=== PATIENT | male | born 1975 | race Caucasian/White ===

== ENCOUNTER 2017-02-14 21:03 | Inpatient (IN) | payer OTHER ==
[~2017-02-14] VITALS: Ht 170.2 cm; Wt 65.3 kg
[2017-02-14] MEDS ORDERED: HALOPERIDOL 5 MG INJ ONE (21:07)
[2017-02-14] MEDS ORDERED: DIPHENHYDRAMINE 50 MG INJ ONE (21:07)
[2017-02-14] MEDS ORDERED: LORAZEPAM 2 MG INJ ONE (21:08)
[2017-02-14] MEDS ORDERED: HALOPERIDOL 5 MG INJ IM ONE (21:30)
[2017-02-14] MEDS ORDERED: DIPHENHYDRAMINE 50 MG INJ IM ONE (21:30)
[2017-02-14] MEDS ORDERED: LORAZEPAM 2 MG INJ IM ONE (21:30)
[2017-02-14 22:09] LABS: URINE BLOOD (Dip) POC 2+ (NEGATIVE)
--- NOTE | 2017-02-14 22:19 | ERA ---
ER Documentation Chief Complaint Date/Time DATE: 02/14/17 TIME: 22:19 Chief Complaint BIB [employer] in custody for drug use/running in street with pic ax HPI . The patient is a 41-year-old male, presenting to the ER because he was very agitated, running on the street with an ax. He was restrained by [employer] office and brought to the ER for medical clearance.. He was very agitated, not responsive to counseling. He was therefore treated with Benadryl 50 mg IM, Ativan 2 mg IM, Haldol 5 mg IM and restraint with good response. He was unable to provide any history, the history is mainly obtained from the [employer] officer. He admitted using amphetamine to the officer Past medical/surgical history/review of system/social history: Unable to obtain due to his condition ROS All systems reviewed and are negative except as per history of present illness. Allergies Allergies: Coded Allergies: Unknown: Unable to obtain (Unverified , 02/15/17) PMhx/Soc History of Surgery: Yes (hernia) Hx Alcohol Use: Yes Hx Substance Use: Yes (admits to meth) Hx Tobacco Use: Yes Smoking Status: Current every day smoker Physical Exam Vitals Vital Signs Date Time Temp Pulse Resp B/P Pulse Ox O2 Delivery O2 Flow Rate FiO2 02/15/17 00:45 82 10 136/84 100 Nasal Cannula 2.0 02/15/17 00:30 83 11 134/85 100 Nasal Cannula 2.0 02/15/17 00:15 85 12 131/92 100 Nasal Cannula 2.0 02/15/17 00:00 87 17 137/81 100 Nasal Cannula 2.0 02/14/17 23:45 84 13 133/84 100 Nasal Cannula 2.0 02/14/17 23:30 97.9 82 10 151/89 100 Nasal Cannula 2.0 02/14/17 23:15 85 12 117/82 100 Nasal Cannula 2.0 02/14/17 23:00 90 21 128/79 100 Nasal Cannula 2.0 02/14/17 22:30 91 18 107/76 99 Nasal Cannula 2.0 02/14/17 22:00 104 21 107/70 100 Nasal Cannula 2.0 02/14/17 22:00 104 02/14/17 22:00 98 2.0 28 02/14/17 21:30 Nasal Cannula 2 02/14/17 21:30 120 9 107/77 100 Nasal Cannula 2.0 02/14/17 21:14 100.9 131 28 117/75 99 Physical Exam Const: No acute distress.Resting comfortably, restraint Head: Atraumatic. Eyes: Normal Conjunctiva. ENT: Normal External Ears, Nose and Mouth. Neck: Full range of motion. No meningismus. Resp: Clear to auscultation bilaterally. Cardio: Regular Tachycardic Abd: Soft, non distended, normal bowel sounds, non tender. Skin: No petechiae or rashes. Back: No midline or flank tenderness. Ext: No cyanosis, or edema. Neur: Unable to perform due to his condition Psych: Unable to perform due to his condition Result Diagram: 02/14/17230902/14/172309 Results 24 hrs Laboratory Tests Test 02/14/17 22:15 02/14/17 23:10 02/15/17 00:17 02/15/17 01:00 Bedside Urine pH (LAB) 6.0 Bedside Urine Protein (LAB) 3+ Bedside Urine Glucose (UA) Negative Bedside Urine Ketones (LAB) Negative Bedside Urine Blood 2+ Bedside Urine Nitrite (LAB) Negative Bedside Urine Leukocyte Esterase (L Negative Urine Opiates Screen Negative Urine Barbiturates Negative Urine Amphetamines Screen POSITIVE Urine Benzodiazepines Screen Negative Urine Cocaine Screen Negative Urine Cannabinoids Negative White Blood Count 14.910^3/ul Red Blood Count 4.9610^6/ul Hemoglobin 14.6g/dl Hematocrit 43.2% Mean Corpuscular Volume 87.1fl Mean Corpuscular Hemoglobin 29.4pg Mean Corpuscular Hemoglobin Concent 33.8g/dl Red Cell Distribution Width 13.3% Platelet Count 11327^3/UL Mean Platelet Volume 9.6fl Neutrophils % 86.9% Lymphocytes % 6.5% Monocytes % 5.3% Eosinophils % 0.2% Basophils % 0.5% Nucleated Red Blood Cells % 0.0/100WBC Neutrophils # (Manual) 12.910^3/ul Lymphocytes # 1.010^3/ul Monocytes # 0.810^3/ul Eosinophils # 0.010^3/ul Basophils # 0.110^3/ul Nucleated Red Blood Cells # 0.010^3/ul Prothrombin Time 12.1Sec Prothrombin Time Ratio 0.9 INR International Normalized Ratio 0.90 Activated Partial Thromboplast Time 24.0Sec Sodium Level 146mmol/L Potassium Level 3.1mmol/L Chloride Level 107mmol/L Carbon Dioxide Level 27mmol/L Anion Gap 15 Blood Urea Nitrogen 20mg/dl Creatinine 1.09mg/dl Glucose Level 95mg/dl Lactic Acid Level 2.8mmol/L Calcium Level 9.7mg/dl Total Bilirubin 0.5mg/dl Direct Bilirubin 0.00mg/dl Indirect Bilirubin 0.5mg/dl Aspartate Amino Transf (AST/SGOT) 90IU/L Alanine Aminotransferase (ALT/SGPT) 54IU/L Alkaline Phosphatase 64IU/L Creatine Kinase 1430IU/L 2217IU/L Troponin I < 0.012ng/ml Total Protein 7.6g/dl Albumin 4.5g/dl Globulin 3.10g/dl Albumin/Globulin Ratio 1.45 Ethyl Alcohol Level < 10.0mg/dl Bedside Glucose 99mg/dL Test 02/15/17 01:40 Lactic Acid Level 1.9mmol/L Current Medications Medications (Trade) Dose Ordered Sig/Carolyn Route PRN Reason Start Time Stop Time Status Last Admin Dose Admin Diphenhydramine HCl (Benadryl) 50 mg ONCE ONCE IM 02/14/17 21:30 02/14/17 21:31 DC 02/14/17 21:28 Lorazepam (Ativan) 2 mg ONCE ONCE IM 02/14/17 21:30 02/14/17 21:31 DC 02/14/17 21:28 Haloperidol (Haldol) 5 mg ONCE ONCE IM 02/14/17 21:30 02/14/17 21:31 DC 02/14/17 21:29 Sodium Chloride (NS) 1,860 ml BOLUS OVER 2 HOURS STAT IV* 02/14/17 22:46 02/14/17 22:49 DC 02/14/17 23:32 Acetaminophen 650 mg 650 mg ONCE ONCE SD 02/14/17 23:00 02/14/17 23:01 DC Vancomycin HCl 250 ml @ 125 mls/hr ONCE IVPB 02/15/17 02:30 02/15/17 04:29 Piperacillin Sod/ Tazobactam Sod 100 ml @ 200 mls/hr ONCE ONCE IVPB 02/15/17 02:30 02/15/17 02:59 DC Potassium Chloride (KCl 40 MEQ/250 ML NS) 250 ml @ 62.5 mls/hr ONCE ONCE IVPB 02/15/17 02:30 02/15/17 06:29 Procedures/MDM [place] [address] Radiology Main Line: [phone] DIAGNOSTIC IMAGING REPORT Patient: KENZIE PEÑALOZA : 1975 Age: 41 Sex: M MR #: [id number] DOS: 02/14/172245 Ordering MD: POLI CARDONA MD Location: E/R Room/Bed: PROCEDURE: XR Chest. CLINICAL INDICATION: Possible sepsis TECHNIQUE: Single AP portable chest. COMPARISON: No prior Chest x-ray FINDINGS: The cardiomediastinal silhouette is within normal limits of size. The lungs are clear without pleural effusion or focal consolidation. No pneumothorax. The osseous structures and soft tissues are unremarkable. IMPRESSION: 1. No evidence for active cardiopulmonary disease. RPTAT:AAJJ Physician Paulie Date Time Electronically viewed and signed by Physician Paulie on 02/14/2017 23:27 REBECA/ CC: POLI CARDONA MD [place] [id number] Radiology Main Line: [phone] DIAGNOSTIC IMAGING REPORT Patient: KENZIE PEÑALOZA : 1975 Age: 41 Sex: M MR #: [id number] DOS: 02/14/172245 Ordering MD: POLI CARDONA MD Location: E/R Room/Bed: PROCEDURE: CT Brain without contrast. CLINICAL INDICATION: Headache possible sepsis TECHNIQUE: A CT of the brain was performed on a [employer] 64-slice CT scanner utilizing axial imaging from the skull base through the vertex without IV contrast. Multiplanar reformatted images were made. Images were reviewed on a PACS workstation. The CTDIvol is 43.92 mGy and the DLP is 793.06 mGycm. One of the following 3 dose reduction techniques were used: Automated exposure control; adjustment of the mA and/or kV according to patient size; or use of iterative reconstruction technique. COMPARISON: None FINDINGS: There is no intracranial hemorrhage, mass effect, or midline shift. No extra- axial fluid collection is seen. The ventricles and sulci are normal in size and configuration. The density of the brain is normal, and the viveros white matter differentiation appears well-preserved. The visualized scalp and calvarium are remarkable for chronic bilateral nasal bone and left lamina papyracea fractures. No evidence for acute fractures are present. The bilateral orbits are normal. The bilateral paranasal sinuses, mastoid air cells and middle ear cavities are clear. IMPRESSION: 1. No evidence of acute intracranial hemorrhage, infarcts, or acute intracranial pathology. 2. Normal noncontrast head CT. 3. 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 RPTAT: HDC .Jeanette Castellanos MD, MD Date Time Electronically viewed and signed by .Jeanette Castellanos MD, MD on 02/14/2017 23: 25 .C/ CC: POLI CARDONA MD EKG: Read by emergency physician Rate/Rhythm: Normal Sinus Rhythm 81 beats/min QRS, ST, T-waves: No ST elevation, no T inversion, Nonspecific intra- ventricular conduction delay, prolonged QT Impression: Abnormal EKG MEDICAL MAKING DECISION: The patient is a 41-year-old male, presenting with acute severe sepsis, acute rhabdomyolysis, acute psychosis most likely due to drug-induced psychosis, acute amphetamine abuse, acute hypokalemia. He was treated with normal saline 30 mL/kg IV, vancomycin IV, Zosyn IV for acute severe sepsis, Tylenol suppository for fever with good response, Potassium chloride 40 mEq IV for acute hypokalemia X The differential diagnoses considered include but are not limited to medication non-compliance, alcohol intoxication or withdrawal, drug intoxication or withdrawal, endocrine disorder, trauma, CVA, tumor, metabolic encephalopathy, septic encephalopathy. Admit MDM: Patient's infectious symptoms have not stabilized and the patient is at risk of rapid decompensation. The patient will be admitted for careful hydration, antibiotic therapy, and infectious source control. Severe Sepsis criteria: Infectious source: Unknown End organ damage indicated by: Lactate > 2.0 mmol/L Sepsis Management: Time of recognition of severe sepsis/septic shock:1:45 am Within 3 hours of recognition: Blood cultures x 2 before broad-spectrum antibiotics: Yes 30 ml/kg NS bolus completed Initial lactate 2.8 Repeat lactate pending Critical Care: Critical care time 35 minutes excluding billable procedure Emergent fluid management while maintaining close respiratory support. Provision of immediate and broad-spectrum antibiotic therapy. Simultaneous assessment for possible sources in order to direct targeted therapy. Consideration for invasive and chemical support to prevent cardiopulmonary collapse. Septic Shock Assessment: Any lactic acid > 4.0 no Persistent hypotension (SBP < 90 or 40 mmHg drop, MAP < 65) despite 30 mL/kg IV fluid bolusno Departure Diagnosis: Primary Impression: Severe sepsis Additional Impressions: Rhabdomyolysis Psychosis Amphetamine abuse Hypokalemia Condition: Stable Comments I discussed the findings with the patient. I discussed the patient with the on- call hospitalist Dr. Angela at 2:15 AM. who was made aware of the lab, the treatment, the patient condition. The patient is admitted to telemetry POLI CARDONA MD Feb 14, 2017 22:19
[2017-02-14 22:46] LABS: CANNABINOIDS Negative (NEGATIVE)
[2017-02-14] MEDS ORDERED: SODIUM CHLORIDE 0.9% 1L BAG IV* STA (22:46)
[2017-02-14 22:47] LABS: BARBITURATES Negative (NEGATIVE); BENZODIAZEPINES Negative (NEGATIVE); COCAINE Negative (NEGATIVE); OPIATES Negative (NEGATIVE)
[2017-02-14] MEDS ORDERED: ACETAMINOPHEN 650 MG SUPP PR ONE (23:00)
--- NOTE | 2017-02-14 23:26 | RADRPT ---
PROCEDURE: CT Brain without contrast. CLINICAL INDICATION: Headache possible sepsis TECHNIQUE: A CT of the brain was performed on a [employer] 64-slice CT scanner utilizing axial imaging from the skull base through the vertex without IV contrast. Multiplanar reformatted images were made. Images were reviewed on a PACS workstation. The CTDIvol is 43.92 mGy and the DLP is 793 .06 mGycm. One of the following 3 dose reduction techniques were used: Automated exposure control; adjustment of the mA and/or kV according to patient size; or use of iterative reconstruction technique. COMPARISON: None FINDINGS: There is no intracranial hemorrhage, mass effect, or midline shift. No extra-axial fluid collection is seen. The ventricles and sulci are normal in size and configuration. The density of the brain is normal, and the viveros white matter differentiation appears well-preserved. The visualized scalp and calvarium are remarkable for chronic bilateral nasal bone and left lamina p apyracea fractures. No evidence for acute fractures are present. The bilateral orbits are normal. The bilateral paranasal sinuses, mastoid air cells and middle ear cavities are clear. IMPRESSION: 1. No evidence of acute intracranial hemorrhage, infarcts, or acute intracranial pathology. 2. Normal noncontrast head CT. 3. 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 RPTAT: HDC .Jeanette Castellanos MD, MD Date Time Electronically viewed and signed by .Jeanette Castellanos MD, MD on 02/14/2017 23:25 .C/
--- NOTE | 2017-02-14 23:28 | RADRPT ---
PROCEDURE: XR Chest. CLINICAL INDICATION: Possible sepsis TECHNIQUE: Single AP portable chest. COMPARISON: No prior Chest x-ray FINDINGS: The cardiomediastinal silhouette is within normal limits of size. The lungs are clear without pleur al effusion or focal consolidation. No pneumothorax. The osseous structures and soft tissues are unr emarkable. IMPRESSION: 1. No evidence for active cardiopulmonary disease. RPTAT:AAJJ Lindsay Chua Physician Date Time Electronically viewed and signed by Lindsay Chua Physician on 02/14/2017 23:27 REBECA/
[2017-02-14 23:30] VITALS: TEMP 97.9
[2017-02-14 23:45] LABS: BASOPHIL # 0.1 10^3/ul (0.0-0.1); BASOPHILS % 0.5 % (0.0-2.0); EOSINOPHILS % 0.2 % (0.0-7.0); HEMATOCRIT 43.2 % (42.0-52.0); HEMOGLOBIN 14.6 g/dl (14.0-18.0); LYMPHOCYTES % 6.5 % (15.0-51.0); MEAN CORPUSCULAR HEMOGLOBIN 29.4 pg (29.0-33.0); MEAN CORPUSCULAR HGB CONC 33.8 g/dl (32.0-37.0); MEAN CORPUSCULAR VOLUME 87.1 fl (82.0-101.0); MEAN PLATELET VOLUME 9.6 fl (7.4-10.4); MONOCYTE # 0.8 10^3/ul (0.3-0.9); MONOCYTES % 5.3 % (0.0-11.0); NEUTROPHILS % 86.9 % (39.0-77.0); PLATELET COUNT 329 10^3/UL (140-415); RED BLOOD COUNT 4.96 10^6/ul (4.70-6.10); RED CELL DISTRIBUTION WIDTH 13.3 % (11.5-14.5); WHITE BLOOD COUNT 14.9 10^3/ul (4.8-10.8)
[2017-02-14 23:55] LABS: INR 0.9; PROTIME 12.1 Sec (12.2-14.2); PT RATIO 0.9
[2017-02-15] VITALS (11 sets, daily range): BP systolic 103–132; BP diastolic 67–73; PULSE 57–70; RESP 16–18; Ht 170.2 cm; Wt 65.3 kg
[2017-02-15] LABS: ALANINE AMINOTRANSFERASE 54 IU/L (13-69); ALBUMIN 4.5 g/dl (3.3-4.9); ALBUMIN/GLOBULIN RATIO 1.45; ALKALINE PHOSPHATASE 64 IU/L (42-121); ANION GAP 15 (8-16); ASPARTATE AMINO TRANSFERASE 90 IU/L (15-46); BILIRUBIN,INDIRECT 0.5 mg/dl (0-1.1); BILIRUBIN,TOTAL 0.5 mg/dl (0.2-1.3); BLOOD UREA NITROGEN 20 mg/dl (7-20); CALCIUM 9.7 mg/dl (8.4-10.2); CARBON DIOXIDE 27 mmol/L (21-31); CHLORIDE 107 mmol/L (97-110); CREATININE 1.09 mg/dl (0.61-1.24); GLUCOSE 95 mg/dl (70-220); POTASSIUM 3.1 mmol/L (3.5-5.1); SODIUM 146 mmol/L (135-144); TOTAL PROTEIN 7.6 g/dl (6.1-8.1)
[2017-02-15 00:22] LABS: ETHANOL < 10.0 mg/dl; TROPONIN-I < 0.012 ng/ml (0.00-0.12)
[2017-02-15] MEDS ORDERED: PIPER-TAZO 3.375 GM IV (PMX) 100 ML IVPB ONE (02:30)
[2017-02-15] MEDS ORDERED: POTASSIUM CHLORIDE 250 ML IVPB ONE (02:30)
[2017-02-15] MEDS ORDERED: VANCOMYCIN 1 GM (PMX) 250 ML IVPB SCH (02:30)
--- NOTE | 2017-02-15 06:54 | HP ---
Date/Time of Note Date/Time of Note DATE: 02/15/17 TIME: 06:47 Assessment/Plan VTE Prophylaxis VTE Prophylaxis Intervention: SCD's Lines/Catheters Urinary Cath still in place: No Assessment/Plan Assessment/Plan 1. Methamphetamine overdose - will give Haldol and Benadryl as needed agitation 2. Rhabdomyolysis -IV fluid -Follow-up CK 3. SIRS, as evidenced by fever, leukocytosis and tachycardia -No clear source of infection, UA negative and chest x-ray without consolidation or infiltrate. This is possibly secondary to stress reaction -will empirically start him on IV antibiotic -Follow-up culture results HPI/ROS Admit Date/Time Admit Date/Time Feb 15, 2017 at 02:28 Hx of Present Illness Patient is a 41-year-old male who was picked up by [employer] from the street after he was found agitated and combative. Patient has been using methamphetamine. When he presented to the ER he was extremely agitated requiring people to restrain him. He was given Ativan, Haldol and Benadryl and after that the patient started coming down. He presented with a temperature of 100.9 and was tachycardic with a heart rate of 131. Labs shows elevated CK as high as 2200, WBC 15,000, potassium 3.1 and lactic acid 2.8 . PMH/Family/Social Social History Smoking Status: Current every day smoker Exam/Review of Systems Vital Signs Vitals Vital Signs Date Time Temp Pulse Resp B/P Pulse Ox O2 Delivery O2 Flow Rate FiO2 02/15/17 05:05 57 02/15/17 04:15 10 118/81 100 Nasal Cannula 2.0 02/14/17 23:30 97.9 02/14/17 22:00 28 Exam Constitutional: other (No acute distress) Head: atraumatic, normocephalic Eyes: PERRL Respiratory: clear to auscultation, normal air movement Cardiovascular: other (Tachycardic with regular rhythm) Gastrointestinal: non-tender, soft Extremities: normal pulses Labs Result Diagram: 02/14/17 2310 02/14/17 2310 Medications Medications Current Medications Sodium Chloride 1,000 ml @ 125 mls/hr Q8H IV ; Start 02/15/17 at 09:00 Levofloxacin/ Dextrose (Levaquin 500mg/ D5W 100 ml (Pmx)) 100 ml @ 100 mls/hr Q24H IVPB ; Start 02/15/17 at 09:00 Morphine Sulfate (morphine) 2 mg Q4H PRN IV PAIN; Start 02/15/17 at 07:00 Ondansetron HCl (Zofran Inj) 4 mg Q6H PRN IV NAUSEA AND/OR VOMITING; Start 02/15 at 07:00 Haloperidol (Haldol) 5 mg Q6H PRN IM anxiety; Start 02/15/17 at 07:00 ESPINOZA BARNEY MD Feb 15, 2017 06:54
[2017-02-15] MEDS ORDERED: ONDANSETRON 4 MG INJ IV PRN ×2 (07:00→14:00)
[2017-02-15] MEDS ORDERED: DIPHENHYDRAMINE 50 MG INJ IV PRN (07:00)
[2017-02-15] MEDS ORDERED: HALOPERIDOL 5 MG INJ IM PRN (07:00)
[2017-02-15] MEDS ORDERED: SOD CHLORIDE 0.9% 1,000 ML IV SCH (09:00)
[2017-02-15] MEDS ORDERED: LEVOFLOXACIN 500MG/D5W (PMX) 100 ML IVPB SCH (09:00)
[2017-02-15 14:05] LABS: ADD UMIC YES; UR AMORPHOUS CRYSTAL MODERATE /HPF (NONE SEEN); UR ASCORBIC ACID NEGATIVE (NEGATIVE); UR BILIRUBIN (Dip) NEGATIVE (NEGATIVE); UR BLOOD (Dip) 1+ mg/dL (NEGATIVE); UR CLARITY TURBID (CLEAR); UR COLOR YELLOW (YELLOW); UR GLUCOSE (Dip) NEGATIVE (NEGATIVE); UR KETONES (Dip) TRACE mg/dL (NEGATIVE); UR LEUKOCYTE ESTERASE (Dip) NEGATIVE Leu/ul (NEGATIVE); UR MUCUS MODERATE /HPF (NONE SEEN); UR NITRITE (Dip) NEGATIVE (NEGATIVE); UR RBC 75 /HPF (0-5); UR SPECIFIC GRAVITY (Dip) 1.032 (1.003-1.030); UR TOTAL PROTEIN (Dip) 2+ mg/dl (NEGATIVE); UR UROBILINOGEN (Dip) 1+ mg/dL (NEGATIVE)
--- NOTE | 2017-02-15 15:37 | PN ---
Date/Time of Note Date/Time of Note DATE: 02/15/17 TIME: 15:33 Assessment/Plan VTE Prophylaxis VTE Prophylaxis Intervention: LMWH Lines/Catheters IV [facility] [place] [facility] Urinary Cath still in place: No Assessment/Plan Chief Complaint/Hosp Course S: No distress. No fever dyspnea. [employer] at bedside. O: Vital signs stable PE No pallor/ droop Reg Clear Benign Min edema if any. Mild warmth? A/P 1. Acute rhabdomyolysis. Stable hydrate 2. Substance abuse- methamphetamines 3. Depression? 4. Possible history of nasal fracture Problems: Exam/Review of Systems Vital Signs Vitals Vital Signs Date Time Temp Pulse Resp B/P Pulse Ox O2 Delivery O2 Flow Rate FiO2 02/15/17 15:25 97.9 59 16 116/67 100 02/15/17 06:00 Nasal Cannula 2.0 02/14/17 22:00 28 Results Result Diagram: 02/14/17 2310 02/14/17 2310 Results 24 hrs Laboratory Tests Test 02/14/17 22:15 02/14/17 23:10 02/15/17 00:17 02/15/17 01:00 Urine Color YELLOW Urine Clarity TURBID A Urine pH 5.0 Bedside Urine pH (LAB) 6.0 Urine Specific [place] 1.032 H Bedside Urine Protein (LAB) 3+ H Bedside Urine Glucose (UA) Negative Urine Ketones TRACE A Bedside Urine Ketones (LAB) Negative Bedside Urine Blood 2+ H Urine Nitrite NEGATIVE Bedside Urine Nitrite (LAB) Negative Urine Bilirubin NEGATIVE Urine Urobilinogen 1+ H Urine Leukocyte Esterase NEGATIVE Bedside Urine Leukocyte Esterase (L Negative Urine Microscopic RBC 75 H Urine Microscopic WBC 0 Urine Calcium Oxalate Crystals MODERATE Urine Amorphous Crystals MODERATE Urine Mucus MODERATE Urine Hemoglobin 1+ H Urine Glucose NEGATIVE Urine Total Protein 2+ H Urine Opiates Screen Negative Urine Barbiturates Negative Urine Amphetamines Screen POSITIVE Urine Benzodiazepines Screen Negative Urine Cocaine Screen Negative Urine Cannabinoids Negative White Blood Count 14.9 H Red Blood Count 4.96 Hemoglobin 14.6 Hematocrit 43.2 Mean Corpuscular Volume 87.1 Mean Corpuscular Hemoglobin 29.4 Mean Corpuscular Hemoglobin Concent 33.8 Red Cell Distribution Width 13.3 Platelet Count 329 Mean Platelet Volume 9.6 Neutrophils % 86.9 H Lymphocytes % 6.5 L Monocytes % 5.3 Eosinophils % 0.2 Basophils % 0.5 Nucleated Red Blood Cells % 0.0 Neutrophils # (Manual) 12.9 H Lymphocytes # 1.0 Monocytes # 0.8 Eosinophils # 0.0 Basophils # 0.1 Nucleated Red Blood Cells # 0.0 Prothrombin Time 12.1 L Prothrombin Time Ratio 0.9 INR International Normalized Ratio 0.90 Activated Partial Thromboplast Time 24.0 L Sodium Level 146 H Potassium Level 3.1 L Chloride Level 107 Carbon Dioxide Level 27 Anion Gap 15 Blood Urea Nitrogen 20 Creatinine 1.09 Glucose Level 95 Lactic Acid Level 2.8 *H Calcium Level 9.7 Total Bilirubin 0.5 Direct Bilirubin 0.00 Indirect Bilirubin 0.5 Aspartate Amino Transf (AST/SGOT) 90 H Alanine Aminotransferase (ALT/SGPT) 54 Alkaline Phosphatase 64 Creatine Kinase 1430 H 2217 #H Troponin I < 0.012 Total Protein 7.6 Albumin 4.5 Globulin 3.10 Albumin/Globulin Ratio 1.45 Ethyl Alcohol Level < 10.0 Bedside Glucose 99 Test 02/15/17 01:40 02/15/17 04:43 Lactic Acid Level 1.9 1.4 Medications Medications Current Medications Sodium Chloride (NS) 1,000 ml @ 125 mls/hr Q8H IV Last administered on t 08:31; Admin Dose 125 MLS/HR; Start 02/15/17 at 09:00 Morphine Sulfate (morphine) 2 mg Q4H PRN IV PAIN; Start 02/15/17 at 07:00 Haloperidol (Haldol) 5 mg Q6H PRN IM anxiety; Start 02/15/17 at 07:00 Diphenhydramine HCl (Benadryl) 25 mg Q6H PRN IV Agitation; Start 02/15/17 at 07: 00 Ondansetron HCl (Zofran Inj) 4 mg Q4H PRN IV NAUSEA AND/OR VOMITING; Start 02/15 at 14:00 Famotidine (Pepcid Iv) 20 mg DAILY IV ; Start 02/16/17 at 09:00 Enoxaparin Sodium (Lovenox) 40 mg DAILY SC ; Start 02/16/17 at 09:00 MARISELA INTERIANO MD Feb 15, 2017 15:36
[2017-02-15] MEDS: SODIUM BICARBONATE (IV ADD) 150 MEQ in DEXTROSE 5% 1,000 ML IV SCH (17:34)
[2017-02-16] VITALS (11 sets, daily range): BP systolic 104–133; BP diastolic 60–73; PULSE 44–102; RESP 16–18
[2017-02-16] MEDS: SODIUM BICARBONATE (IV ADD) 150 MEQ in DEXTROSE 5% 1,000 ML IV SCH ×3 (03:45→22:01)
[2017-02-16 06:57] LABS: BASOPHILS % 0.7 % (0.0-2.0); EOSINOPHILS # 0.1 10^3/ul (0.0-0.5); EOSINOPHILS % 1.4 % (0.0-7.0); HEMATOCRIT 36.5 % (42.0-52.0); HEMOGLOBIN 12.5 g/dl (14.0-18.0); LYMPHOCYTES # 1.6 10^3/ul (0.8-2.9); LYMPHOCYTES % 26.4 % (15.0-51.0); MEAN CORPUSCULAR HGB CONC 34.2 g/dl (32.0-37.0); MEAN CORPUSCULAR VOLUME 87.7 fl (82.0-101.0); MEAN PLATELET VOLUME 9.9 fl (7.4-10.4); MONOCYTE # 0.4 10^3/ul (0.3-0.9); MONOCYTES % 7.1 % (0.0-11.0); NEUTROPHILS % 64.1 % (39.0-77.0); PLATELET COUNT 242 10^3/UL (140-415); RED BLOOD COUNT 4.16 10^6/ul (4.70-6.10); RED CELL DISTRIBUTION WIDTH 13.6 % (11.5-14.5); WHITE BLOOD COUNT 5.9 10^3/ul (4.8-10.8)
[2017-02-16 07:14] LABS: INR 0.95; PROTIME 12.7 Sec (12.2-14.2)
[2017-02-16 07:28] LABS: ALANINE AMINOTRANSFERASE 42 IU/L (13-69); ALBUMIN/GLOBULIN RATIO 1.25; ALKALINE PHOSPHATASE 43 IU/L (42-121); ANION GAP 7 (8-16); ASPARTATE AMINO TRANSFERASE 60 IU/L (15-46); BILIRUBIN,INDIRECT 0.4 mg/dl (0-1.1); BILIRUBIN,TOTAL 0.4 mg/dl (0.2-1.3); BLOOD UREA NITROGEN 10 mg/dl (7-20); CALCIUM 8.1 mg/dl (8.4-10.2); CARBON DIOXIDE 31 mmol/L (21-31); CHLORIDE 103 mmol/L (97-110); CREATININE 0.69 mg/dl (0.61-1.24); GLUCOSE 99 mg/dl (70-220); MAGNESIUM 1.7 mg/dl (1.7-2.5); PHOSPHORUS 3.3 mg/dl (2.5-4.9); SODIUM 138 mmol/L (135-144); TOTAL PROTEIN 5.4 g/dl (6.1-8.1)
[2017-02-16 07:33] LABS: POTASSIUM 2.9 mmol/L (3.5-5.1); TROPONIN-I < 0.012 ng/ml (0.00-0.12)
[2017-02-16] MEDS: FAMOTIDINE 20 MG INJ IV SCH (08:53)
[2017-02-16] MEDS: POTASSIUM CHLORIDE 250 ML IVPB SCH ×2 (08:53→16:16)
[2017-02-16] MEDS: ENOXAPARIN 40 MG/0.4 ML SYG SC SCH (09:00)
[2017-02-16 10:21] LABS: THYROID STIMULATING HORMONE 0.758 MIU/L (0.465-4.680)
--- NOTE | 2017-02-16 14:54 | PN ---
Date/Time of Note Date/Time of Note DATE: 02/16/17 TIME: 14:52 Assessment/Plan VTE Prophylaxis VTE Prophylaxis Intervention: LMWH Lines/Catheters [facility] Peripheral IV Urinary Cath still in place: No Assessment/Plan Chief Complaint/Hosp Course S: 02/15 no distress. No fever dyspnea. [employer] at bedside. 02/16: Not oriented to [facility] at present. No focal deficits; follows commands. speech clear. No distress. States he drinks 3-4 beers a day. O: Vital signs stable PE No pallor/ droop Reg Clear Benign Min edema Neuro: Nonfocal. No asterixis A/P 1. Acute rhabdomyolysis. Stable hydrate 2. Substance abuse- methamphetamines/, 3. Depression? 4. Possible history of nasal fracture 5. Delirium? Continue neuro checks Problems: Exam/Review of Systems Vital Signs Vitals Vital Signs Date Time Temp Pulse Resp B/P Pulse Ox O2 Delivery O2 Flow Rate FiO2 02/16/17 12:10 56 02/16/17 11:43 98.0 18 124/66 99 02/15/17 06:00 Nasal Cannula 2.0 02/14/17 22:00 28 Intake and Output 02/15/17 02/15/17 02/16/17 15:00 23:00 07:00 Intake Total 2550 ml 1620 ml Output Total 850 ml 650 ml Balance 1700 ml 970 ml Results Result Diagram: 02/16/17 0617 02/16/17 0617 Results 24 hrs Laboratory Tests Test 02/16/17 06:17 White Blood Count 5.9 # Red Blood Count 4.16 L Hemoglobin 12.5 L Hematocrit 36.5 L Mean Corpuscular Volume 87.7 Mean Corpuscular Hemoglobin 30.0 Mean Corpuscular Hemoglobin Concent 34.2 Red Cell Distribution Width 13.6 Platelet Count 242 # Mean Platelet Volume 9.9 Neutrophils % 64.1 Lymphocytes % 26.4 Monocytes % 7.1 Eosinophils % 1.4 Basophils % 0.7 Nucleated Red Blood Cells % 0.0 Neutrophils # (Manual) 3.8 Lymphocytes # 1.6 Monocytes # 0.4 Eosinophils # 0.1 Basophils # 0.0 Nucleated Red Blood Cells # 0.0 Prothrombin Time 12.7 Prothrombin Time Ratio 1.0 INR International Normalized Ratio 0.95 Sodium Level 138 Potassium Level 2.9 *L Chloride Level 103 Carbon Dioxide Level 31 Anion Gap 7 #L Blood Urea Nitrogen 10 # Creatinine 0.69 Glucose Level 99 Hemoglobin A1c 5.3 Calcium Level 8.1 L Phosphorus Level 3.3 Magnesium Level 1.7 Total Bilirubin 0.4 Direct Bilirubin 0.00 Indirect Bilirubin 0.4 Aspartate Amino Transf (AST/SGOT) 60 H Alanine Aminotransferase (ALT/SGPT) 42 Alkaline Phosphatase 43 Troponin I < 0.012 Total Protein 5.4 #L Albumin 3.0 #L Globulin 2.40 Albumin/Globulin Ratio 1.25 Lipase 114 Thyroid Stimulating Hormone (TSH) 0.758 Medications Medications Current Medications Morphine Sulfate (morphine) 2 mg Q4H PRN IV PAIN; Start 02/15/17 at 07:00 Haloperidol (Haldol) 5 mg Q6H PRN IM anxiety; Start 02/15/17 at 07:00 Diphenhydramine HCl (Benadryl) 25 mg Q6H PRN IV Agitation; Start 02/15/17 at 07: 00 Ondansetron HCl (Zofran Inj) 4 mg Q4H PRN IV NAUSEA AND/OR VOMITING; Start 02/15 at 14:00 Famotidine (Pepcid Iv) 20 mg DAILY IV Last administered on 02/16/17 08:53; Admin Dose 20 MG; Start 02/16/17 at 09:00 Enoxaparin Sodium 40 mg 40 mg DAILY SC Last administered on 02/16/17 09:00; Admin Dose 40 MG; Start 02/16/17 at 09:00 Sodium Bicarbonate 150 meq/Dextrose 1,150 ml @ 125 mls/hr Q9H12M IV Last administered on 02/16/17 03:45; Admin Dose 125 MLS/HR; Start 02/15/17 at 17:00 Potassium Chloride (KCl 40 MEQ/250 ML NS) 250 ml @ 62.5 mls/hr Q4H IVPB Last administered on 02/16/17 08:53; Admin Dose 62.5 MLS/HR; Start 02/16/17 at 08:30; Stop 02/16/17 at 16:29 Acetaminophen (Tylenol Tab) 650 mg Q4H PRN PO PAIN AND OR ELEVATED TEMP; Start 02/16/17 at 14:30 Ibuprofen (Motrin) 800 mg Q6H PRN PO MODERATE PAIN LEVEL 4-6; Start 02/16/17 at 14:30 MARISELA INTERIANO MD Feb 16, 2017 14:54
[2017-02-16] MEDS ORDERED: POTASSIUM CHLORIDE 20 MEQ POWDER FOR ORAL SOLN PO SCH (21:00)
[2017-02-17 00:07] VITALS: BP 111/55; RESP 16
[2017-02-17] MEDS: SODIUM BICARBONATE (IV ADD) 150 MEQ in DEXTROSE 5% 1,000 ML IV SCH ×3 (05:08→18:51)
[2017-02-17 06:18] LABS: BASOPHIL # 0.1 10^3/ul (0.0-0.1); BASOPHILS % 1.1 % (0.0-2.0); EOSINOPHILS # 0.1 10^3/ul (0.0-0.5); EOSINOPHILS % 1.4 % (0.0-7.0); HEMATOCRIT 38.7 % (42.0-52.0); HEMOGLOBIN 13.2 g/dl (14.0-18.0); LYMPHOCYTES # 1.9 10^3/ul (0.8-2.9); LYMPHOCYTES % 33.9 % (15.0-51.0); MEAN CORPUSCULAR HEMOGLOBIN 30.1 pg (29.0-33.0); MEAN CORPUSCULAR HGB CONC 34.1 g/dl (32.0-37.0); MEAN CORPUSCULAR VOLUME 88.2 fl (82.0-101.0); MEAN PLATELET VOLUME 10.5 fl (7.4-10.4); MONOCYTE # 0.4 10^3/ul (0.3-0.9); MONOCYTES % 7.7 % (0.0-11.0); NEUTROPHILS % 55.7 % (39.0-77.0); PLATELET COUNT 280 10^3/UL (140-415); RED BLOOD COUNT 4.39 10^6/ul (4.70-6.10); RED CELL DISTRIBUTION WIDTH 13.3 % (11.5-14.5); WHITE BLOOD COUNT 5.6 10^3/ul (4.8-10.8)
[2017-02-17 06:48] LABS: CALCIUM 8.6 mg/dl (8.4-10.2); CREATININE 0.85 mg/dl (0.61-1.24); MAGNESIUM 1.6 mg/dl (1.7-2.5); PHOSPHORUS 4.3 mg/dl (2.5-4.9)
[2017-02-17 07:00] VITALS: BP 120/73; RESP 18
[2017-02-17 08:41] LABS: ADD UMIC NO; UR ASCORBIC ACID NEGATIVE (NEGATIVE); UR BILIRUBIN (Dip) NEGATIVE (NEGATIVE); UR BLOOD (Dip) NEGATIVE (NEGATIVE); UR CLARITY CLEAR (CLEAR); UR COLOR STRAW (YELLOW); UR GLUCOSE (Dip) 1+ mg/dL (NEGATIVE); UR KETONES (Dip) NEGATIVE (NEGATIVE); UR LEUKOCYTE ESTERASE (Dip) NEGATIVE Leu/ul (NEGATIVE); UR NITRITE (Dip) NEGATIVE (NEGATIVE); UR SPECIFIC GRAVITY (Dip) 1.009 (1.003-1.030); UR TOTAL PROTEIN (Dip) NEGATIVE (NEGATIVE); UR UROBILINOGEN (Dip) NEGATIVE (NEGATIVE)
[2017-02-17] MEDS: POTASSIUM CHLORIDE 20 MEQ POWDER FOR ORAL SOLN PO SCH ×3 (09:08→20:30)
[2017-02-17] MEDS: FAMOTIDINE 20 MG INJ IV SCH (09:08)
[2017-02-17] MEDS: ENOXAPARIN 40 MG/0.4 ML SYG SC SCH (09:23)
--- NOTE | 2017-02-17 11:36 | PN ---
Date/Time of Note Date/Time of Note DATE: 02/17/17 TIME: 11:30 Assessment/Plan VTE Prophylaxis VTE Prophylaxis Intervention: ambulation, SCD's Lines/Catheters IV Catheter Type (from Nrs): Saline Lock Urinary Cath still in place: No Assessment/Plan Assessment/Plan 1. Acute alteration in mental status secondary to #2 2. Acute toxic encephalopathy 3. Acute rhabdomyolysis 4. Multi-substance abuse [methamphetamine/tobacco] 5. Systemic inflammatory response syndrome secondary to #3: resolved PLAN: Continue IV Hydration till CK is below 1000 at least s/p substance use cessation counselling re-inforcement supportive care Subjective 24 Hr Interval Summary Free Text/Dictation Last BM this am, no red urine Constitutional: no complaints Eyes: no complaints Respiratory: no complaints Cardiovascular: no complaints Gastrointestinal: no complaints Musculoskeletal: no complaints Psychological: no complaints Exam/Review of Systems Vital Signs Vitals Vital Signs Date Time Temp Pulse Resp B/P Pulse Ox O2 Delivery O2 Flow Rate FiO2 02/17/17 07:00 98.1 76 18 120/73 98 02/15/17 06:00 Nasal Cannula 2.0 02/14/17 22:00 28 Intake and Output 02/16/17 02/16/17 02/17/17 15:00 23:00 07:00 Intake Total 1800 ml 1150 ml Output Total 1950 ml Balance 1800 ml -800 ml Exam Constitutional: alert, oriented, No distress Psych: nl mood/affect Head: normocephalic Eyes: PERRL ENMT: mucosa pink and moist Neck: non-tender, supple Respiratory: diminished breath sounds Cardiovascular: regular rate and rhythm, No murmurs/extra sounds Gastrointestinal: bowel sounds, non-tender, soft Extremities: No edema Neurological: nl speech, nl strength, No confused, No focal weakness Results Result Diagram: 02/17/17 0500 02/17/17 0500 Results 24 hrs Laboratory Tests Test 02/17/17 04:45 02/17/17 05:00 02/17/17 05:30 Urine Color STRAW Urine Clarity CLEAR Urine pH 8.0 Urine Specific [place] 1.009 Urine Ketones NEGATIVE Urine Nitrite NEGATIVE Urine Bilirubin NEGATIVE Urine Urobilinogen NEGATIVE Urine Leukocyte Esterase NEGATIVE Urine Hemoglobin NEGATIVE Urine Glucose 1+ H Urine Total Protein NEGATIVE White Blood Count 5.6 Red Blood Count 4.39 L Hemoglobin 13.2 L Hematocrit 38.7 L Mean Corpuscular Volume 88.2 Mean Corpuscular Hemoglobin 30.1 Mean Corpuscular Hemoglobin Concent 34.1 Red Cell Distribution Width 13.3 Platelet Count 280 Mean Platelet Volume 10.5 H Neutrophils % 55.7 Lymphocytes % 33.9 Monocytes % 7.7 Eosinophils % 1.4 Basophils % 1.1 Nucleated Red Blood Cells % 0.0 Neutrophils # (Manual) 3.1 Lymphocytes # 1.9 Monocytes # 0.4 Eosinophils # 0.1 Basophils # 0.1 Nucleated Red Blood Cells # 0.0 Sodium Level 141 Potassium Level 4.0 Chloride Level 104 Carbon Dioxide Level 31 Anion Gap 10 Blood Urea Nitrogen 12 Creatinine 0.85 Glucose Level 97 Calcium Level 8.6 Phosphorus Level 4.3 Magnesium Level 1.6 L Creatine Kinase 1160 H Vitamin B12 Level 262 Medications Medications Current Medications Morphine Sulfate (morphine) 2 mg Q4H PRN IV PAIN; Start 02/15/17 at 07:00 Haloperidol (Haldol) 5 mg Q6H PRN IM anxiety; Start 02/15/17 at 07:00 Diphenhydramine HCl (Benadryl) 25 mg Q6H PRN IV Agitation; Start 02/15/17 at 07: 00 Ondansetron HCl (Zofran Inj) 4 mg Q4H PRN IV NAUSEA AND/OR VOMITING; Start 02/15 at 14:00 Famotidine (Pepcid Iv) 20 mg DAILY IV Last administered on 02/17/17 09:08; Admin Dose 20 MG; Start 02/16/17 at 09:00 Enoxaparin Sodium 40 mg 40 mg DAILY SC Last administered on 02/17/17 09:23; Admin Dose 40 MG; Start 02/16/17 at 09:00 Sodium Bicarbonate/ Dextrose (Na Bicarb/D5W) 1,150 ml @ 100 mls/hr [id number] IV Last administered on 02/17/17 05:08; Admin Dose 100 MLS/HR; Start 02/15/17 at 17: 00 Acetaminophen (Tylenol Tab) 650 mg Q4H PRN PO PAIN AND OR ELEVATED TEMP; Start 02/16/17 at 14:30 Ibuprofen (Motrin) 800 mg Q6H PRN PO MODERATE PAIN LEVEL 4-6; Start 02/16/17 at 14:30 Thiamine HCl (Vitamin B1) 100 mg DAILY@21 PO ; Start 02/17/17 at 21:00 Potassium Chloride 40 meq 40 meq TID PO Last administered on 02/17/17t 09:08; Admin Dose 40 MEQ; Start 02/17/17 at 09:00 Magnesium Sulfate (Magnesium Sulfate 2 Gm/50 ml) 50 ml @ 25 mls/hr ONCE ONCE IVPB ; Start 02/17/17 at 12:00; Stop 02/17/17 at 13:59 MISHA SEQUEIRA Feb 17, 2017 11:36
[2017-02-17] MEDS ORDERED: MAGNESIUM SULFATE 2 GM/50 ML 50 ML IVPB ONE (12:00)
[2017-02-17 15:05] VITALS: BP 102/55; RESP 18
[2017-02-17] MEDS: IBUPROFEN 800 MG TAB PO PRN (15:17)
[2017-02-17] MEDS: ACETAMINOPHEN 325 MG TAB PO PRN (18:15)
[2017-02-17] MEDS ORDERED: NEOMYC/POLYMYX/BACIT 0.9 GM OINT ONE (18:54)
[2017-02-17 20:24] VITALS: BP 110/60; RESP 16
[2017-02-17] MEDS: THIAMINE 100 MG TAB PO SCH (20:30)
[2017-02-18 02:13] VITALS: BP 111/70; RESP 16
[2017-02-18] MEDS: SODIUM BICARBONATE (IV ADD) 150 MEQ in DEXTROSE 5% 1,000 ML IV SCH ×2 (05:34→08:31)
[2017-02-18 07:43] VITALS: BP 100/56; RESP 18
[2017-02-18] MEDS: FAMOTIDINE 20 MG INJ IV SCH (08:15)
[2017-02-18] MEDS: POTASSIUM CHLORIDE 20 MEQ POWDER FOR ORAL SOLN PO SCH ×3 (08:15→19:51)
[2017-02-18] MEDS: ENOXAPARIN 40 MG/0.4 ML SYG SC SCH (08:22)
[2017-02-18] MEDS: SOD CHLORIDE 0.9% 1,000 ML IV SCH ×2 (12:08→19:51)
[2017-02-18 13:52] VITALS: BP 109/57; RESP 18
[2017-02-18] MEDS: IBUPROFEN 800 MG TAB PO PRN (18:17)
[2017-02-18 19:43] VITALS: BP 108/54; PULSE 70; RESP 18
[2017-02-18] MEDS: ACETAMINOPHEN 325 MG TAB PO PRN (19:52)
[2017-02-18] MEDS: THIAMINE 100 MG TAB PO SCH (19:52)
[2017-02-19 01:54] VITALS: BP 110/61; RESP 19
[2017-02-19] MEDS: IBUPROFEN 800 MG TAB PO PRN ×2 (01:58→08:06)
[2017-02-19] MEDS: SOD CHLORIDE 0.9% 1,000 ML IV SCH ×6 (01:58→21:20)
[2017-02-19] MEDS: ACETAMINOPHEN 325 MG TAB PO PRN (06:52)
[2017-02-19 07:00] VITALS: BP 108/69; RESP 18
[2017-02-19] MEDS: FAMOTIDINE 20 MG TAB PO SCH (08:52)
[2017-02-19] MEDS: POTASSIUM CHLORIDE 20 MEQ POWDER FOR ORAL SOLN PO SCH ×3 (08:52→20:24)
[2017-02-19] MEDS: ENOXAPARIN 40 MG/0.4 ML SYG SC SCH (08:54)
[2017-02-19 14:00] VITALS: BP 104/67; RESP 20
[2017-02-19] MEDS ORDERED: LORAZEPAM 2 MG INJ IV ONE (16:00)
--- NOTE | 2017-02-19 16:47 | PN ---
Date/Time of Note Date/Time of Note DATE: 02/19/17 TIME: 16:41 Assessment/Plan VTE Prophylaxis VTE Prophylaxis Intervention: ambulation, SCD's Lines/Catheters IV Catheter Type (from Nrs): Saline Lock Urinary Cath still in place: No Assessment/Plan Assessment/Plan 1. Acute alteration in mental status secondary to #2 2. Acute toxic encephalopathy 3. Acute rhabdomyolysis 4. Multi-substance abuse [methamphetamine/tobacco] 5. Systemic inflammatory response syndrome secondary to #3: resolved 6. Chronic depression: PLAN: Continue IV Hydration till CK is below 1000 at least s/p substance use cessation counselling re-inforcement Start low dose antidepressants supportive care Subjective 24 Hr Interval Summary Free Text/Dictation patient has been depressed today and states he has a hx of depression and would like to be treated for depression Exam/Review of Systems Vital Signs Vitals Vital Signs Date Time Temp Pulse Resp B/P Pulse Ox O2 Delivery O2 Flow Rate FiO2 02/19/17 14:00 97.8 66 20 104/67 98 02/18/17 19:43 Room Air Intake and Output 02/18/17 02/18/17 02/19/17 15:00 23:00 07:00 Intake Total 700 ml 2630 ml 3070 ml Output Total 2000 ml 2400 ml Balance 700 ml 630 ml 670 ml Exam Constitutional: alert, oriented Head: atraumatic, normocephalic Neck: non-tender, supple Respiratory: clear to auscultation Cardiovascular: regular rate and rhythm Gastrointestinal: S/ NT / ND / +BS Extremities: no edema, good radial pulses Results Result Diagram: 02/17/17 0500 02/17/17 0500 Results 24 hrs Laboratory Tests Test 02/19/17 04:54 Magnesium Level 1.7 Creatine Kinase 1287 H Medications Medications Current Medications Morphine Sulfate (morphine) 2 mg Q4H PRN IV PAIN; Start 02/15/17 at 07:00 Haloperidol (Haldol) 5 mg Q6H PRN IM anxiety Last administered on 02/19/17t 13: 14; Admin Dose 5 MG; Start 02/15/17 at 07:00 Diphenhydramine HCl (Benadryl) 25 mg Q6H PRN IV Agitation; Start 02/15/17 at 07: 00 Ondansetron HCl (Zofran Inj) 4 mg Q4H PRN IV NAUSEA AND/OR VOMITING; Start 02/15 at 14:00 Enoxaparin Sodium (Lovenox) 40 mg DAILY SC Last administered on 02/19/17 08:54 ; Admin Dose 40 MG; Start 02/16/17 at 09:00 Acetaminophen (Tylenol Tab) 650 mg Q4H PRN PO PAIN AND OR ELEVATED TEMP Last administered on 02/19/17 06:52; Admin Dose 650 MG; Start 02/16/17 at 14:30 Ibuprofen (Motrin) 800 mg Q6H PRN PO MODERATE PAIN LEVEL 4-6 Last administered on 02/19/17 08:06; Admin Dose 800 MG; Start 02/16/17 at 14:30 Thiamine HCl (Vitamin B1) 100 mg DAILY@21 PO Last administered on 02/18/17 19: 52; Admin Dose 100 MG; Start 02/17/17 at 21:00 Potassium Chloride 40 meq 40 meq TID PO Last administered on 02/19/17 13:15; Admin Dose 40 MEQ; Start 02/17/17 at 09:00 Sodium Chloride (NS) 1,000 ml @ 150 mls/hr Q6H40M IV Last administered on 11:31; Admin Dose 150 MLS/HR; Start 02/18/17 at 12:00 Famotidine (Pepcid) 20 mg DAILY PO Last administered on 02/19/17 08:52; Admin Dose 20 MG; Start 02/19/17 at 09:00 Quetiapine Fumarate (Seroquel) 25 mg BID PO ; Start 02/19/17 at 21:00 MISHA SEQUEIRA Feb 19, 2017 16:46
[2017-02-19] MEDS ORDERED: LORAZEPAM 2 MG INJ IV PRN (17:00)
--- NOTE | 2017-02-19 19:04 | PN ---
DATE: 02/18/2017 SUBJECTIVE DATA: No new issues. The patient remains stable. OBJECTIVE DATA: VITAL SIGNS: Temperature 98.6, pulse 120, respirations 18, blood pressure 109/57, and saturation 99 percent on room air. GENERAL: He remains alert and oriented. No distress. HEENT: Head normocephalic. Pupils equal, round and reactive. NECK: Supple. CHEST: Clear. CARDIOVASCULAR: S1 and S2, no murmur. ABDOMEN: Soft, nontender, nondistended. Active bowel sounds. EXTREMITIES: No lower extremity edema. SKIN: No rash or jaundice. LABORATORY AND DIAGNOSTIC DATA: His creatinine kinase today went up actually from 11.62 to 18.53. A goal for discharge is 1000 or less. ASSESSMENT AND PLAN: Rhabdomyolysis secondary to use superimposed on dehydration. PLAN: 1. Increase IV fluid hydration. 2. Continue to trend creatinine kinase level. Discharge once goal is reached. Dictated By: Frederick Estrella MD /chacha/iliana /Document#: [id number]
[2017-02-19 19:48] VITALS: BP 119/61; RESP 18
[2017-02-19] MEDS: THIAMINE 100 MG TAB PO SCH (20:24)
[2017-02-19] MEDS: QUETIAPINE 25 MG TAB PO SCH (20:25)
[2017-02-19] MEDS ORDERED: QUETIAPINE 25 MG TAB PO SCH (21:00)
[2017-02-20] MEDS: SOD CHLORIDE 0.9% 1,000 ML IV SCH ×4 (02:25→22:04)
[2017-02-20 05:51] LABS: CALCIUM 8.8 mg/dl (8.4-10.2); CREATININE 0.74 mg/dl (0.61-1.24); POTASSIUM 4.5 mmol/L (3.5-5.1)
[2017-02-20 07:30] VITALS: BP 104/55; RESP 20
[2017-02-20] MEDS: POTASSIUM CHLORIDE 20 MEQ POWDER FOR ORAL SOLN PO SCH ×3 (08:57→21:02)
[2017-02-20] MEDS: FAMOTIDINE 20 MG TAB PO SCH (08:57)
[2017-02-20] MEDS: ENOXAPARIN 40 MG/0.4 ML SYG SC SCH (09:34)
--- NOTE | 2017-02-20 13:21 | PDOCDIS ---
Discharge Instructions CONDITION Patient Condition: Stable HOME CARE INSTRUCTIONS: Diet Instructions: Regular ACTIVITY: Activity Restrictions: Slowly Increase Activity FOLLOW UP/APPOINTMENTS Follow[place] [facility] [place] OTHER ORDERS: Other Orders: You are being [place] [facility] [place] and psychiatric evaluation for depression ESPINOZA BARNEY MD Feb 20, 2017 13:21
[2017-02-20] MEDS ORDERED: [UNRECOGNIZED DRUG - OTHER] IV (13:23)
[2017-02-20 15:09] VITALS: BP 98/49; RESP 18
[2017-02-20] MEDS: morphine 2 MG INJ IV PRN ×2 (16:17→21:03)
[2017-02-20] MEDS: IBUPROFEN 800 MG TAB PO PRN (17:46)
[2017-02-20 20:34] VITALS: BP 96/55; RESP 18
[2017-02-20] MEDS: QUETIAPINE 25 MG TAB PO SCH (21:02)
[2017-02-20] MEDS: THIAMINE 100 MG TAB PO SCH (21:02)
--- NOTE | 2017-02-20 23:51 | PN ---
Date/Time of Note Date/Time of Note DATE: 02/20/17 TIME: 23:48 Assessment/Plan VTE Prophylaxis VTE Prophylaxis Intervention: LMWH Lines/Catheters IV [facility] Type [facility]from [facility] Saline Lock Urinary Cath still in place: No Assessment/Plan Assessment/Plan 1. Rhabdomyolysis - Cont IV fluid -Follow-up CK 2. s/p SIRS, as evidenced by fever, leukocytosis and tachycardia, during initial presentations: resolved -No clear source of infection, UA negative and chest x-ray without consolidation or infiltrate. This is possibly secondary to stress reaction. WBC has normalized - s/p IV abx 3. Depression: no SI or HI - cont meds Subjective 24 Hr Interval Summary Free Text/Dictation c/p total body ache and shoulder pain Exam/Review of Systems Vital Signs Vitals Vital Signs Date Time Temp Pulse Resp B/P Pulse Ox O2 Delivery O2 Flow Rate FiO2 02/20/17 20:34 98.6 71 18 96/55 96 02/18/17 19:43 Room Air Intake and Output 02/19/17 02/19/17 02/20/17 15:00 23:00 07:00 Intake Total 850 ml 3080 ml 960 ml Output Total 1900 ml 1200 ml Balance 850 ml 1180 ml -240 ml Exam Constitutional: alert, oriented, well developed Head: atraumatic, normocephalic Eyes: EOMI, PERRL Respiratory: clear to auscultation, normal air movement Cardiovascular: nl pulses, regular rate and rhythm Gastrointestinal: non-tender, soft Musculoskeletal: other (shoulder tenderness) Extremities: normal pulses Results Result Diagram: 02/17/17 0500 02/20/17 0430 Results 24 hrs Laboratory Tests Test 02/20/17 04:30 Sodium Level 139 Potassium Level 4.5 Chloride Level 108 Carbon Dioxide Level 26 Anion Gap 10 Blood Urea Nitrogen 18 Creatinine 0.74 Glucose Level 86 Calcium Level 8.8 Creatine Kinase 1117 H Medications Medications Current Medications Morphine Sulfate (morphine) 2 mg Q4H PRN IV PAIN Last administered on 02/20/17 21:03; Admin Dose 2 MG; Start 02/15/17 at 07:00 Haloperidol (Haldol) 5 mg Q6H PRN IM anxiety Last administered on 02/19/17 13: 14; Admin Dose 5 MG; Start 02/15/17 at 07:00 Diphenhydramine HCl (Benadryl) 25 mg Q6H PRN IV Agitation; Start 02/15/17 at 07: 00 Ondansetron HCl (Zofran Inj) 4 mg Q4H PRN IV NAUSEA AND/OR VOMITING; Start 02/15 at 14:00 Enoxaparin Sodium (Lovenox) 40 mg DAILY SC Last administered on 02/20/17 09:34 ; Admin Dose 40 MG; Start 02/16/17 at 09:00 Acetaminophen (Tylenol Tab) 650 mg Q4H PRN PO PAIN AND OR ELEVATED TEMP Last administered on 02/19/17 06:52; Admin Dose 650 MG; Start 02/16/17 at 14:30 Ibuprofen (Motrin) 800 mg Q6H PRN PO MODERATE PAIN LEVEL 4-6 Last administered on 02/20/17 17:46; Admin Dose 800 MG; Start 02/16/17 at 14:30 Thiamine HCl (Vitamin B1) 100 mg DAILY@21 PO Last administered on 02/20/17 21: 02; Admin Dose 100 MG; Start 02/17/17 at 21:00 Potassium Chloride 40 meq 40 meq TID PO Last administered on 02/20/17 21:02; Admin Dose 40 MEQ; Start 02/17/17 at 09:00 Sodium Chloride (NS) 1,000 ml @ 150 mls/hr Q6H40M IV Last administered on 22:04; Admin Dose 150 MLS/HR; Start 02/18/17 at 12:00 Famotidine (Pepcid) 20 mg DAILY PO Last administered on 02/20/17 08:57; Admin Dose 20 MG; Start 02/19/17 at 09:00 Quetiapine Fumarate (Seroquel) 50 mg QHS PO Last administered on 02/20/17 21:02 ; Admin Dose 50 MG; Start 02/19/17 at 21:00 Lorazepam (Ativan) 1 mg Q8H PRN IV anxiety; Start 02/19/17 at 17:00 ESPINOZA BARNEY MD Feb 20, 2017 23:51
[2017-02-21 02:45] VITALS: BP 94/52; RESP 16
[2017-02-21] MEDS: SOD CHLORIDE 0.9% 1,000 ML IV SCH (04:33)
[2017-02-21] MEDS: ACETAMINOPHEN 325 MG TAB PO PRN (06:05)
[2017-02-21 07:13] LABS: CALCIUM 8.4 mg/dl (8.4-10.2); CREATININE 0.82 mg/dl (0.61-1.24); POTASSIUM 4.1 mmol/L (3.5-5.1)
[2017-02-21 08:03] VITALS: BP 110/58; RESP 16
[2017-02-21] MEDS: morphine 2 MG INJ IV PRN (08:16)
[2017-02-21] MEDS: FAMOTIDINE 20 MG TAB PO SCH (08:32)
[2017-02-21] MEDS: POTASSIUM CHLORIDE 20 MEQ POWDER FOR ORAL SOLN PO SCH (08:33)
[2017-02-21] MEDS: ENOXAPARIN 40 MG/0.4 ML SYG SC SCH (08:36)
[2017-02-21] MEDS ORDERED: QUET25TA33 PO (09:42)
[2017-02-21] MEDS: IBUPROFEN 800 MG TAB PO PRN (09:48)
== END 2017-02-21 10:30 | DRG 557 ==
LOC: E/R 21:03 → TEL 02-15 02:28 → MS1 02-15 04:49
PROVIDERS: ADMIT Internal Medicine; ATTEND Internal Medicine
DX: M62.82 Rhabdomyolysis (principal); G92 Toxic encephalopathy; R65.10 Systemic inflammatory response syndrome (SIRS) of non-infectious origin without acute organ dysfunction; T43.621A Poisoning by amphetamines, accidental (unintentional), initial encounter; R45.1 Restlessness and agitation; Z72.0 Tobacco use; F29 Unspecified psychosis not due to a substance or known physiological condition; E87.6 Hypokalemia; F32.9 Major depressive disorder, single episode, unspecified
CPT/HCPCS: 36415; 70450; 71010; 80048; 80053; 80306; 80307; 81001; 81003; 82550; 82607; 82746; 82962; 83036; 83605; 83690; 83735; 84100; 84443; 84484; 85025; 85610; 85730; 86592; 87040; 87086; 93005; 96365; 96366; 96372; 96375; J1200; J1630; J1650; J1956; J2060; J2270; J2543; J3370; J3475; J3480; J7030; J7070; P9612